=== PATIENT | female | born 1965 | race Caucasian/White ===

== ENCOUNTER 2016-09-20 19:29 | Emergency (ER) | payer OTHER ==
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
[~2016-09-20 19:29] MED LIST: ALAVERT10 M1 PO; ALBUTEROL MININEB NEB; ALBUTEROL17 GM INH; ALLFEN400 MG; AMOXICILLIN500 M1 PO; AZITHROMYCIN250 MG PO; BENTYL10 MG PO; CARAFATE1 G PO; CELEXA PO; CELEXA20 MG PO; CYMBALTA PO; DICYCLOMINE PO; FAMOTIDINE PO; FLEXERIL PO; FLEXERIL10 M1 PO; FLEXERIL10 MG PO; GABAPENTIN300 MG PO; HELIDAC KIT; HYDROCODONE/APA1 T16 PO; KADIAN PO; KETOPROFEN PO; LAMICTAL PO; LIDODERM30 EA TOP; LISINOPRIL PO; LISINOPRIL20 MG PO; LUNESTA; MEDROL DOSEPAK4 MG PO; NAPROSYN500 MG PO; NAPROXEN PO; NEURONTIN PO; OMEPRAZOLE40 MG PO; POLYTRIM EYE DR10 ML OP; PREDNISONE PO; PREDNISONE50 MG PO; PRILOSEC PO; PRILOSEC20 M1 PO; PROAIR HFA8.5 GM INH; PROVENTIL17 GM INH; PROVERA10 MG; TESSALON200 MG PO; VICODIN 5/500 T1 TAB PO; ZITHROMAX1 G/PKT PO; ZYRTEC10 M2 PO; [UNRECOGNIZED DRUG - OTHER]
[2016-10-20] MEDS ORDERED: CITALOPRAM HBR40 M1 PO (15:31)
[2016-10-20] MEDS ORDERED: GABAPENTIN300 MG PO (15:32)
[2016-10-20] MEDS ORDERED: PRINIVIL20 M1 PO (15:32)
[2016-10-20] MEDS ORDERED: RANITIDINE HCL150 M1 PO (15:32)
[2016-10-20] MEDS ORDERED: NEURONTIN600 MG PO (15:32)
[2016-10-20] MEDS ORDERED: AUGMENTIN PO (15:33)
[2016-10-20] MEDS ORDERED: MONTELUKAST SOD10 MG PO (15:34)
[2016-10-20] MEDS ORDERED: LINZESS145 MCG PO (15:35)
[2016-10-20] MEDS ORDERED: BENTYL10 M1 PO (15:36)
[2016-10-20] MEDS ORDERED: NORCO 7.5-3251 EACH PO (15:36)
[2016-10-20] MEDS ORDERED: FLEXERIL10 MG PO (15:37)
[2016-10-20] MEDS ORDERED: ALBUTEROL20 ml INH (15:40)
[2016-10-20] MEDS ORDERED: PROMETHAZINE D118 ML PO (15:40)
[2016-10-20] MEDS ORDERED: PAIN CREAM TD (15:42)
== END 2016-09-20 20:30 | disposition home or self-care (01) ==
LOC: CED 19:29
DX: M54.12 Radiculopathy, cervical region (principal); I10 Essential (primary) hypertension; F17.210 Nicotine dependence, cigarettes, uncomplicated; Z88.2 Allergy status to sulfonamides; V49.50XA Passenger injured in collision with unspecified motor vehicles in traffic accident, initial encounter; Y92.488 Other paved roadways as the place of occurrence of the external cause
CPT/HCPCS: 71020; 72125; 96372; 99284; J1885

== ENCOUNTER → 2016-12-14 | Day surgery (SDC) | payer OTHER ==
[~2016-12-14] MED LIST changes: +ALBUTEROL20 ml INH; +AUGMENTIN PO; +BENTYL10 M1 PO; +CITALOPRAM HBR40 M1 PO; +LINZESS145 MCG PO; +MONTELUKAST SOD10 MG PO; +NEURONTIN600 MG PO; +NORCO 7.5-3251 EACH PO; +PAIN CREAM TD; +PRINIVIL20 M1 PO; +PROMETHAZINE D118 ML PO; +RANITIDINE HCL150 M1 PO
--- NOTE | ~2016-12-14 | OR ---
Unit #: [id number] #: [id number] Patient: DEEDEE WASHINGTON [id number] [address] [address] [id number] O MR#: [id number] NAME: DEEDEE WASHINGTON ROOM: Date of Procedure: 12/14/2016 Admission Date: 12/14/2016 Surgeon: Edvin Dawson M.D. : 1965 Attending Physician: Edvin Dawson M.D. Referring Physician: Edvin Dawson M.D. Primary Care Physician: Steve Helm M.D. OPERATIVE REPORT PROCEDURE PERFORMED Esophagogastroduodenoscopy with biopsy. INDICATIONS FOR PROCEDURE Significant left upper quadrant pain, dyspepsia, and bloating. Undergoing evaluation with upper endoscopy. MEDICATIONS Monitored anesthesia. POSTOPERATIVE FINDINGS 1. Normal esophagus. 2. Mild gastritis. Biopsies taken. 3. Duodenitis involving the descending duodenum. Biopsies taken. PLAN Follow up on pathology report. Further recommendations to follow. DESCRIPTION OF PROCEDURE The patient was explained of the procedure, risks, and benefits along with the risks and benefits of anesthesia. She was brought to the endoscopy room. Propofol anesthesia was given. Bite block was placed. The scope was passed down the mouth into the esophagus, stomach, duodenum, and distal duodenum. Findings as described. Biopsies taken. Gently, I pulled the scope out of the patient's mouth. She tolerated it well. Dictated by... Randi Sherman/claudia TD: 12/15/2016 06:42 JOB #: [id number] CC: Steve Helm M.D. Unit #: [id number] #: [id number] Patient: DEEDEE WASHINGTON OPERATIVE REPORT Page 1 of 1 X Edvin Dawson MD X PROCEDURE OPERATIVE NOTE
[2016-12-14 10:08] LABS: BASOPHIL# 0.1 X10e3 (0-0.3); BASOPHIL% 0.9 % (0-2.5); EOSINOPHIL# 0.2 X10e3 (0-0.7); EOSINOPHIL% 2.6 % (0.0-7.0); HEMATOCRIT 45.3 % (35.0-45.0); HEMOGLOBIN 15.2 gm/dL (12.0-16.0); LYMPHOCYTE# 2.2 X10e3 (1.0-3.5); LYMPHOCYTE% 24.2 % (17.0-45.0); MEAN CELL VOLUME 88.6 FL (83-96); MEAN CORPUSCULAR HEMOGLOBIN 29.8 PG (28-34); MEAN CORPUSCULAR HGB CONC 33.6 g/dL (30-36); MONOCYTE# 0.6 X10e3 (0-1.0); MONOCYTE% 6.8 % (3.0-12.0); NEUTROPHIL# 5.8 X10e3 (1.5-7.1); NEUTROPHIL% 65.5 % (40-75); PLATELET COUNT 249 X10e3 (140-420); RED BLOOD COUNT 5.11 X10e (3.90-5.30); RED CELL DISTRIBUTION WIDTH 13.1 % (11.0-15.5); WHITE BLOOD COUNT 8.9 X10e3 (4.0-10.5)
[2016-12-14 10:09] LABS: DIFF IND NO
[2016-12-14 10:29] LABS: ALBUMIN SERUM 3.8 g/dL (3.5-5.0); BILIRUBIN,TOTAL 0.4 mg/dL (0.2-2.0); BUN/CREATININE RATIO 15.55; CALCIUM SERUM 9.2 mg/dL (8.4-10.2); CREATININE SERUM 0.9 mg/dL (0.6-1.4); GLOM FILT RATE Estimated 75.1 mL/min (>60); POTASSIUM 4.8 mmol/L (3.5-5.1); PROTEIN TOTAL SERUM 6.8 g/dL (6.0-8.3)
== END | disposition home or self-care (01) ==
LOC: COPS 07:26
PROVIDERS: Internal Medicine
DX: K29.60 Other gastritis without bleeding (principal); K29.80 Duodenitis without bleeding; K21.9 Gastro-esophageal reflux disease without esophagitis; J44.9 Chronic obstructive pulmonary disease, unspecified; F17.200 Nicotine dependence, unspecified, uncomplicated; K44.9 Diaphragmatic hernia without obstruction or gangrene; R31.29 Other microscopic hematuria; M54.31 Sciatica, right side; Z79.899 Other long term (current) drug therapy; Z88.2 Allergy status to sulfonamides; Z91.018 Allergy to other foods
CPT/HCPCS: 80053; 85025; 88305; 88312

== ENCOUNTER → 2016-12-21 | Outpatient (CLI) | payer OTHER ==
--- NOTE | ~2016-12-21 | CR236 ---
[facility] A Service of [facility] RADIOLOGY TEXT RESULTS PATIENT: DEEDEE WASHINGTON LOCATION: [facility] : 69 UNIT #: [id number] AGE: [address]: Edvin Dawson MD SEX: F ORDER DR: [id number] [place] [id number] [facility]. [place], [place] [address] [id number] O MR#: [id number] Acc #: [id number] NAME: DEEDEE WASHINGTON : 1965 SEX: F STUDY DATE/TIME: 12/21/2016 10:31 UNIT: [facility] ROOM: STUDY DESCRIPTION: CR Small Bowel Sbft W Films Attending Physician: Edvin Dawson M.D. Referring Physician: Edvin Dawson M.D. Ordering Physician: Edvin Dawson M.D. Primary Care Physician: Steve Helm M.D. MEDICAL IMAGING REPORT This report is preliminary unless electronic signature is present EXAM Small bowel follow-through COMPARISON CT abdomen and pelvis dated October 12, 2015. INDICATIONS 51-year-old female with left upper quadrant abdominal pain for 1 year. Recent upper endoscopy demonstrating gastritis and duodenitis. History of H. pylori infection. FINDINGS The patient was administered barium by mouth followed by serial AP overhead imaging of the abdomen and pelvis. The dehydrator operator topogram demonstrates hepatomegaly as well as inferior lumbar levoscoliosis. There is advanced degenerative facet disease at L4-L5 bilaterally, right slightly greater than left. Total fluoro time was approximately 1 minute. A total of 12 images were obtained. There is subjectively normal gastric emptying. There is normal mucosal fold pattern of the jejunum and ileum. There is normal small bowel transit, with barium seen in the right colon at 30 minutes. Spot images were performed at the terminal ileum as well as within the left abdomen, in the area of patient's pain. These were normal. The appendix is incompletely visualized. The visualized portions are normal. IMPRESSION 1. Normal small bowel follow-through. 2. Hepatomegaly. Dictated by... [facility] A Service of [facility] & [facility] RADIOLOGY TEXT RESULTS PATIENT: DEEDEE WASHINGTON LOCATION: [facility] : [birth year] UNIT #: [id number] AGE: [address]: Edvin Dawson MD SEX: F ORDER DR: Octaviano Lozano M.D. THIS IS AN ELECTRONICALLY VERIFIED REPORT Octaviano Lozano M.D. at 12/26/2016 1:59 PM BLM/psc TD: 12/22/2016 00:30 JOB #: [id number] MEDICAL IMAGING REPORT Page 1 of 1 COPY
== END | disposition home or self-care (01) ==
LOC: CRAD 09:24
DX: R10.9 Unspecified abdominal pain (principal); R16.0 Hepatomegaly, not elsewhere classified
CPT/HCPCS: 74250

== ENCOUNTER 2017-02-18 14:28 | Emergency (ER) | payer OTHER ==
--- NOTE | ~2017-02-18 | CR126 ---
[facility] A Service of [facility] & [facility] RADIOLOGY TEXT RESULTS PATIENT: DEEDEE WASHINGTON LOCATION: [facility] : 69 UNIT #: [id number] AGE: [address]: VALENTINO BLAND SEX: F ORDER DR: [id number] [place] [id number] E MR#: [id number] Acc #: [id number] NAME: DEEDEE WASHINGTON : 1965 SEX: F STUDY DATE/TIME: 02/18/2017 15:54 UNIT: [facility] ROOM: STUDY DESCRIPTION: CR Foot Complete Min 3 View Lt Attending Physician: Valentino Bland A.P.R.N. Ordering Physician: Valentino Bland A.P.R.N. Primary Care Physician: Valentino Helm M.D. MEDICAL IMAGING REPORT This report is preliminary unless electronic signature is present. EXAM Left foot, 3 views HISTORY Foot pain after fall yesterday. FINDINGS The tarsal, metatarsal, and phalangeal elements are all anatomically normal in position and alignment. There are no articular defects. No fractures or radiopaque foreign bodies in the soft tissues are apparent. IMPRESSION Normal foot. Dictated by... Jose Alejandro Wilkes M.D. THIS IS AN ELECTRONICALLY VERIFIED REPORT Jose Alejandro Wilkes M.D. at 02/19/2017 10:38 PM DFL/psc TD: 02/19/2017 14:21 JOB #: [id number] MEDICAL IMAGING REPORT Page 1 of 1
--- NOTE | ~2017-02-18 | CR21 ---
[facility] A Service of [facility] & [facility] RADIOLOGY TEXT RESULTS PATIENT: DEEDEE WASHINGTON LOCATION: [facility] : 69 UNIT #: [id number] AGE: [address]: VALENTINO BLAND SEX: F ORDER DR: [id number] [place] [id number] E MR#: [id number] Acc #: [id number] NAME: DEEDEE WASHINGTON : 1965 SEX: F STUDY DATE/TIME: 02/18/2017 15:54 UNIT: [facility] ROOM: STUDY DESCRIPTION: CR Ankle Min 3 Views Rt Attending Physician: Valentino Bland A.P.R.N. Ordering Physician: Valentino Bland A.P.R.N. Primary Care Physician: Valentino Helm M.D. MEDICAL IMAGING REPORT This report is preliminary unless electronic signature is present. EXAM Right ankle, 3 views HISTORY Ankle pain after fall yesterday. FINDINGS Three views of the right ankle demonstrate normal bone alignment. Mild soft tissue swelling over the lateral malleolus. No fracture, joint space narrowing or dislocation. IMPRESSION 1. Soft tissue swelling over the lateral malleolus. 2. No fracture. Dictated by... Jose Alejandro Wilkes M.D. THIS IS AN ELECTRONICALLY VERIFIED REPORT Jose Alejandro Wilkes M.D. at 02/19/2017 10:38 PM DFL/psc TD: 02/19/2017 14:20 JOB #: [id number] MEDICAL IMAGING REPORT Page 1 of 1
--- NOTE | ~2017-02-18 | CR253 ---
[facility] A Service of [facility] & [facility] RADIOLOGY TEXT RESULTS PATIENT: DEEDEE WASHINGTON LOCATION: [facility] : 69 UNIT #: [id number] AGE: [address]: VALENTINO BLAND SEX: F ORDER DR: [id number] [place] [id number] E MR#: [id number] Acc #: [id number] NAME: DEEDEE WASHINGTON : 1965 SEX: F STUDY DATE/TIME: 02/18/2017 15:54 UNIT: [facility] ROOM: STUDY DESCRIPTION: CR Tibia and Fibula 2 Views Rt Attending Physician: Valentino Bland A.P.R.N. Ordering Physician: Valentino Bland A.P.R.N. Primary Care Physician: Valentino Helm M.D. MEDICAL IMAGING REPORT This report is preliminary unless electronic signature is present. EXAM Right lower leg. HISTORY Fell down steps in garage twice. FINDINGS Two views of the right lower leg demonstrates mild soft tissue swelling over the lateral malleolus. Knee and ankle joint unremarkable. No fracture or dislocation. IMPRESSION Soft tissue swelling over the lateral ankle. No visible fracture. Dictated by... Kiley Ivan M.D. THIS IS AN ELECTRONICALLY VERIFIED REPORT Kiley Ivan M.D. at 02/19/2017 7:36 PM JEWELS/apolinar TD: 02/19/2017 14:28 JOB #: [id number] MEDICAL IMAGING REPORT Page 1 of 1
== END 2017-02-18 17:20 | disposition home or self-care (01) ==
LOC: SED 14:28
DX: S93.401A Sprain of unspecified ligament of right ankle, initial encounter (principal); S93.602A Unspecified sprain of left foot, initial encounter; Z88.2 Allergy status to sulfonamides; Z79.01 Long term (current) use of anticoagulants; W01.0XXA Fall on same level from slipping, tripping and stumbling without subsequent striking against object, initial encounter; Y92.009 Unspecified place in unspecified non-institutional (private) residence as the place of occurrence of the external cause
CPT/HCPCS: 29405; 73590; 73610; 73630; 99283